=== PATIENT | female | born 1960 | race Two or more races ===

== ENCOUNTER 2024-11-19 03:36 | Emergency (ER) | payer OTHER ==
[~2024-11-19] VITALS: Ht 160 cm; Wt 68.0 kg
[2024-11-19] MEDS ORDERED: KETOROLAC TROMETHAMINE 60 MG VIAL IM STA (04:58)
[2024-11-19] MEDS ORDERED: KETOROLAC TROMETHAMINE 60 MG VIAL IM ONE (04:58)
== END 2024-11-19 05:11 | disposition home or self-care (01) ==
LOC: ER 03:36
DX: J06.9 Acute upper respiratory infection, unspecified (principal); Z88.0 Allergy status to penicillin; Z88.8 Allergy status to other drugs, medicaments and biological substances
CPT/HCPCS: 96372; 99282; J1885